=== PATIENT | female | born 1955 | race Caucasian/White ===

== ENCOUNTER → 2016-06-07 | Outpatient (CLI) | payer OTHER | END | disposition home or self-care (01) | LOC: PCVCIMAG 15:27 | PROVIDERS: ATTEND Internal Medicine Cardiovascular Disease | DX: I10 Essential (primary) hypertension (principal); Z86.79 Personal history of other diseases of the circulatory system | CPT/HCPCS: 80061; 93005; 93017 ==

== ENCOUNTER → 2017-05-09 | Outpatient (CLI) | payer OTHER | END | disposition home or self-care (01) | LOC: PCVCIMAG 13:51 | DX: I08.1 Rheumatic disorders of both mitral and tricuspid valves (principal); I10 Essential (primary) hypertension; E78.00 Pure hypercholesterolemia, unspecified; M81.0 Age-related osteoporosis without current pathological fracture; Z87.891 Personal history of nicotine dependence; Z79.899 Other long term (current) drug therapy; Z79.82 Long term (current) use of aspirin | CPT/HCPCS: 80061; 93005; 93306 ==

== ENCOUNTER → 2017-09-27 | Outpatient (CLI) | payer OTHER ==
[~2017-09-27] MED LIST: BENZOCAINE ONE 20% MUCOSAL SPRAY.; IOHEXOL 350 MG/ML 100 ML VIAL.; IOHEXOL 350 MG/ML 50 ML VIAL.; IV NORMAL SALINE 500ML BAG 500 ML; LIDOCAINE 1% PF 30 ML VIAL.; LIDOCAINE 1%/EPI 1:100,000 20 ML VIAL.; MIDAZOLAM HCL/PF 2 MG/2 ML VIAL.; fentaNYL PF VIAL 100 MCG/2 ML VIAL
== END ==
LOC: PCVCINTER 10:39
DX: I70.1 Atherosclerosis of renal artery (principal); I73.9 Peripheral vascular disease, unspecified; I34.0 Nonrheumatic mitral (valve) insufficiency; E78.5 Hyperlipidemia, unspecified; Z87.891 Personal history of nicotine dependence
CPT/HCPCS: 36252; 75630; 76937; 93312; 93325; 93460; 99152; 99153; C1751; C1760; C1769; C1894; J1644; J2250; J3010; J3490; J7040; Q9967

== ENCOUNTER → 2018-07-29 | Outpatient (CLI) | payer OTHER ==
--- NOTE | 2018-07-31 09:16 | PCVCIMAG ---
APPROVED REPORT Study performed: 07/29/2018 15:51:15 Exam: Stress Echocardiogram Indication: Mitral Valve Disease, Hypertension Patient Location: Echo lab Stress Nurse: Kira Louis RN Room #: 2 Status: routine Ht: 5 ft 4 in HR: 92 bpm BP: 112/70 mmHg Rhythm: NSR Medical History Medical History: Valvular heart disease, HTN Cardiac Risk Factors: HTN Previous Cardiac Procedures: none Pretest Chest Pain Characteristics: No chest pain Exercise History: Physically active Procedure The patient underwent an Exercise Stress Test using the Mahad Protocol. Blood pressure, heart rate, and EKG were monitored. An Echocardiogram was performed by durable medical equipment technician in four stages in quad fashion. At peak stress, four selected images were obtained and placed side by side with resting images for comparison. Stress Test Details Stress Test: Exercise stress testing was performed using a Mahad protocol. HR Resting HR: 92 bpmMax Heart Rate (APMHR): 159 bpm Max HR Achieved: 164 bpmTarget HR (85% APMHR): 135 bpm % of APMHR: 103 Recovery HR: 100 bpm HR response to stress: Normal HR response to stress BP Resting BP: 112/70 mmHg Max BP: 160/68 mmHg Recovery BP: 137/86 mmHg BP response to stress: Normal blood pressure response to stress. ECG Resting ECG: Sinus Rhythm, Right axis deviation Stress ECG: Sinus Rhythm ST Change: Non-ischemic Arrhythmia: Rare PVCs Recovery ECG: Sinus Rhythm Recovery ST Change: Non-ischemic Recovery ST Deviation: -0.25 mm Recovery Arrhythmia: Rare PVCs Clinical Reason for Termination: Maximal effort Stress Symptoms: Leg Fatigue Exercise duration: 6 min 00 sec Highest Stage Achieved: Stage 2: 2.5 mph at 12% grade. Exercise capacity: 7.0 METs Overall Exercise Capacity for Age: Poor Scale: Active Angina Score: None No complications. Stress ECG Conclusion The patient exercised according to the MAHAD protocol for 6:00 mins; achieving a work level of 7.0 METS. The resting heart rate of 92 bpm gifty to a maximum heart rate of 164 bpm. This value represent 103% of the maximal, age-predicted heart rate. The resting blood pressure of 112/70 mmHg, gifty to a maximum blood pressure of 160/68 mmHg. The exercise test was stopped due to leg fatigue. Pre-Stress Echo The resting Echocardiogram showed normal left ventricular contractility with an estimated Ejection Fraction of about 55-60%. Normal wall motion in all segments on baseline images. Post-Stress Echo The stress Echocardiogram showed normal left ventricular contractility with an estimated Ejection Fraction of about 65-70%. Normal augmentation of wall motion in all segments on post stress images. Clinical No clinical or ECG evidence for ischemia. Conclusion Clinical Response: Non-ischemic Exercise Capacity: Below Average Stress ECG Response: Non-ischemic Stress Echo Images: Non-ischemic No clinical, EKG or echocardiographic evidence for ischemia. No echocardiographic evidence for exercise induced ischemia. Normal stress echocardiogram with maximal exercise stress. <Conclusion> No clinical, EKG or echocardiographic evidence for ischemia. No echocardiographic evidence for exercise induced ischemia. Normal stress echocardiogram with maximal exercise stress.
== END | disposition home or self-care (01) ==
LOC: PCVCIMAG 15:30
PROVIDERS: ATTEND Internal Medicine Cardiovascular Disease
DX: I10 Essential (primary) hypertension (principal); I05.9 Rheumatic mitral valve disease, unspecified
CPT/HCPCS: 93325; 93351

== ENCOUNTER → 2018-10-01 | Outpatient (CLI) | payer OTHER ==
--- NOTE | 2018-10-01 15:23 | PCVCIMAG ---
APPROVED REPORT Study performed: 10/01/2018 10:39:37 EXAM: Comprehensive 2D, Doppler, and color-flow Echocardiogram Patient Location: Echo lab Status: routine BSA: 1.77 HR: 77 bpmBP: 110/70 mmHg Rhythm: NSR Other Information Study Quality: Good Risk Factors: Cardiac Risk Factors: HTN Indications Mitral Valve prolapse, Myxomatous mitral valve 2D Dimensions IVSd: 11.63 (7-11mm)LVOT Diam: 21.86 (18-24mm) LVDd: 45.16 mm PWd: 10.65 (7-11mm)Ascending Ao: 30.20 (22-36mm) LVDs: 28.14 (25-40mm) Left Atrium: 49.42 (27-40mm) Aortic Root: 29.25 mm LV Single Plane 4CH: 62.96 % LV Single Plane 2CH: 62.54 % Biplane EF: 60.0 % Volumes Left Atrial Volume (Systole) Single Plane 4CH: 102.38 mLSingle Plane 2CH: 125.32 mL LA ESV Index: 66.00 mL/m2 Aortic Valve AoV Peak Geoff.: 1.56 m/s AO Peak Gr.: 9.75 mmHg Mitral Valve MV Peak Gr.: 11.59 mmHg MV Mean Gr.: 4.57 mmHgE/A Ratio: 1.1 MV Decel. Time: 181.35 ms MV E Max Geoff.: 1.20 m/s MV A Geoff.: 1.14 m/s MV Max Geoff.: 1.70 m/s MV Mean Geoff.: 1.01 m/s MV VTI: 376.59 mm MV PHT: 43.45 ms MVA (PHT): 5.06 cm2 TDI E/Lateral E': 13.33E/Medial E': 12.00 Medial E' Geoff.: 0.10 m/s Lateral E' Geoff.: 0.09 m/s Pulmonary Valve PV Peak Gr.: 1.58 mmHg Pulmonary Vein P Vein S: 0.63 m/sP Vein A: 0.37 m/s P Vein D: 0.62 m/sP Vein A Dur.: 124.6 msec P Vein S/D Ratio: 1.02 Tricuspid Valve TR Peak Geoff.: 2.66 m/s TR Peak Gr.: 28.38 mmHg Left Ventricle The left ventricle is normal size. There is normal LV segmental wall motion. Mild concentric left ventricular hypertrophy. Left ventricular systolic function is normal. The left ventricular ejection fraction is within the normal range. LVEF is 60-65%. The left ventricular diastolic function is normal. Right Ventricle The right ventricle is normal size. The right ventricular systolic function is normal. Atria Left atrium is severely dilated. The right atrium size is normal. Aortic Valve The aortic valve is normal in structure. No aortic regurgitation is present. There is no aortic valvular stenosis. 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 Moderate to severe mitral regurgitation No evidence of mitral valve stenosis. Tricuspid Valve The tricuspid valve is normal in structure. There is no tricuspid valve regurgitation noted. Pulmonic Valve The pulmonary valve is normal in structure. There is no pulmonic valvular regurgitation. Great Vessels The aortic root is normal in size. IVC is normal in size and collapses >50% with inspiration. Pericardium There is no pericardial effusion. <Conclusion> The left ventricle is normal size. LVEF is 60-65%. The left ventricular diastolic function is normal. The right ventricle is normal size. Left atrium is severely dilated. The aortic valve is normal in structure. Moderate to severe mitral regurgitation Myxomaous mitral valve leaflets. Posterior mitral valve prolapse. There is no tricuspid valve regurgitation noted. The aortic root is normal in size. There is no pericardial effusion.
== END | disposition home or self-care (01) ==
LOC: PCVCIMAG 10:37
PROVIDERS: ATTEND Internal Medicine Cardiovascular Disease
DX: I34.1 Nonrheumatic mitral (valve) prolapse (principal); I34.0 Nonrheumatic mitral (valve) insufficiency; E78.00 Pure hypercholesterolemia, unspecified; I11.9 Hypertensive heart disease without heart failure; Z87.891 Personal history of nicotine dependence; Z79.82 Long term (current) use of aspirin; Z79.899 Other long term (current) drug therapy
CPT/HCPCS: 93306